=== PATIENT | female | born 1995 | race African-American/Black ===

== ENCOUNTER 2021-09-19 16:37 | Emergency (ER) | payer MEDICAID ==
[~2021-09-19] VITALS: Ht 160 cm; Wt 64.0 kg
[2021-09-19 17:11] VITALS: BP 116/71
== END 2021-09-19 23:35 | disposition left against medical advice (07) ==
LOC: ER 16:37
DX: Z53.21 Procedure and treatment not carried out due to patient leaving prior to being seen by health care provider (principal)